=== PATIENT | female | born 1995 | race African-American/Black ===

== ENCOUNTER 2023-05-16 14:58 | Emergency (ER) | payer OTHER, SELFPAY ==
--- NOTE | ~2023-05-16 | US_ITS ---
CORRECTED REPORT examination description [facility] [place] 05/17/23 This report was recreated on 05/17/23. Original report was [employer] EXAMINATION: US OB <= 14 weeks fetus w TV INDICATION: hcg quant >1500, suprapubic pain TECHNIQUE: Sonography of the pelvis was performed by transabdominal and transvaginal techniques. COMPARISON: None. RESULT: Uterus: 10.8 x 6.2 x 7.0 cm. Anteverted. The cervix is long and closed. Homogenous myometrium. Intrauterine gestational sac: Single present. Mean Sac Diameter: 2.7 cm, corresponding gestational age 7 week 5 days. Yolk sac: 0.4 cm . Embryo: Single present. Ayden rump length: 1.22 cm, corresponding gestational age 7 weeks, 3 days. Gestational heart rate: present 159 bpm. Subgestational hematoma: Absent . Right ovary: 3.5 x 1.7 x 2.2 cm. Vascular flow is present. No adnexal mass. Left ovary: 2.6 x 1.2 x 1.4 cm. Vascular flow is present. No adnexal mass. Pelvis free fluid: Trace free fluid in the right adnexa IMPRESSION: Single, live intrauterine gestation. Estimated Gestational Age: 7 weeks, 3 days by crown rump length. SYMONE by ultrasound 12/30/2023. Reviewed, dictated and finalized at location K. [employer] EXP[employer] MTDD IMPRESSION: Single, live intrauterine gestation. Estimated Gestational Age: 7 weeks, 3 days by crown rump length. SYMONE by ultras ound 12/30/2023.
[2023-05-16 15:18] VITALS: BP 132/78; PULSE 107; RESP 16; TEMP 36.8; O2SAT 100
[2023-05-16 15:37] LABS: Basophils Percent Auto 0.2 % (0.2-1.2); Eosinophils Absolute Auto 0.2 K/mm3 (0-0.3); Eosinophils Percent Auto 1.5 % (0-4.4); Hematocrit 35.5 % (37.0-47.0); Hemoglobin 10.8 g/dL (12.0-15.0); Immature Granulocyte Absolute 0.02 K/mm3 (0.00-0.031); Immature Granulocyte Percent A 0.2 % (0-0.5); Lymphocytes Absolute Auto 2.61 K/mm3 (0.9-3.2); Lymphocytes Percent Auto 26.6 % (18.3-44.2); Mean Corpuscular HGB Conc 30.4 g/dl (32-36); Mean Corpuscular Hemoglobin 24.1 pg (26-34); Mean Corpuscular Volume 79.2 fl (80-100); Mean Platelet Volume 9.5 fl (7.4-10.4); Monocytes Absolute Auto 0.5 K/mm3 (0.1-0.6); Monocytes Percent Auto 5.1 % (2.6-8.5); Neutrophils Absolute Auto 6.5 K/mm3 (1.3-6.7); Neutrophils Percent Auto 66.4 % (45.5-73.1); Platelet Count Result 361 k/mm3 (150-375); Red Blood Count 4.48 M/mm3 (4.2-5.4); White Blood Count 9.8 K/mm3 (4.5-10.0)
[2023-05-16 15:48] LABS: Appearance Urine Cloudy (Clear); Bacteria Urine 1+ /hpf; Bilirubin Urine Negative (Negative); Blood Urine Negative (Negative); Color Urine Yellow (Yellow); Glucose Urine UA Negative (Negative); Ketones Urine Negative (Negative); Leukocyte Esterase Ur 2+ LEU/UL (Negative); Nitrate Urine Negative (Negative); Non Pathogenic Casts 0-2; Protein Urine Negative (Negative); RBC Urine 0-2 /hpf (0-2); Squamous Epithelial Cell Urine Moderate /hpf (Few); WBC Urine 21-50 /hpf; pH Urine 5.5 (5.0-9.0)
[2023-05-16 15:50] LABS: Alanine Aminotransferase 19 U/L (6-35); Albumin Level 4.3 g/dL (3.5-5.1); Alkaline Phosphatase 82 U/L (38-126); Anion Gap 12 mmol/L (8-16); Aspartate Amino Transferase 20 U/L (14-36); Bilirubin,Total 0.4 mg/dL (0.2-1.3); Blood Urea Nitrogen 5 mg/dL (7-17); Calcium 9.5 mg/dL (8.4-10.2); Carbon Dioxide 22 mmol/L (22-30); Chloride 101 mmol/L (98-107); Estimated CRCL calculation 188 ml/min; Estimated Glomerular Filt Rate > 60; Glucose 121 mg/dL (65-110); Lipase 32 U/L (23-300); Potassium 3.6 mmol/L (3.4-5.0); Sodium 135 mmol/L (137-145)
[2023-05-16 15:53] LABS: Add Urine Microscopic? YES
[2023-05-16 16:01] VITALS: BP 121/88; O2SAT 100
[2023-05-16 16:31] VITALS: BP 114/81; O2SAT 100
[2023-05-16 16:46] VITALS: BP 119/84; O2SAT 100
--- NOTE | 2023-05-16 17:15 | ED.ABDPAIN ---
HPI - Abdominal Pain General Chief Complaint: Abdominal Pain Stated Complaint: abd pain Time Seen by Provider: 05/16/23 17:03 History of Present Illness HPI narrative: 28-year-old Female, , reports for evaluation for suprapubic abdominal pain and nausea for the past week. Patient describes the pain as crampy and intermittent. States it is worse when she sits up and better when she lays flat. She reports associated urinary frequency. Patient also states she cole positive at home test 1 and half weeks ago. Her last menstrual period was March 21 2023. She does not have an OBGYN. She denies flank pain, dysuria, fevers, vomiting, diarrhea, hematuria, vaginal bleeding or discharge, concern for STDs, Chest pain or shortness of breath. She has not taken anything for her pain. Last bowel movement was today and normal. Related Data Allergies Allergy/AdvReac Type Severity Reaction Status Date / Time No Known Allergies Allergy Verified 05/16/23 15:55 Review of Systems Review of Systems: CONSTITUTIONAL: Denies fever, chills, or sweats. EYES: Denies visual changes, redness, or discharge. ENT: Denies rhinorrhea, congestion, sore throat, or otalgia. CARDIOVASCULAR: Denies chest pain, palpitations, or edema. RESPIRATORY: Denies cough or dyspnea. GASTROINTESTINAL: See HPI GENITOURINARY: Denies dysuria or hematuria. SKIN: see HPI MUSCULOSKELETAL: Denies back pain, joint pain, or myalgia. NEUROLOGIC: Denies headache, numbness, or weakness. PSYCHIATRIC: Denies anxiety or depression. Exam Narrative: GENERAL: Well-appearing, well-nourished, and in no acute distress. patient resting comfortably in exam bed. She is pleasant and conversational. HEAD: Normocephalic, atraumatic. EYES: PERRLA and EOMI. ENT: Nares clear, no rhinorrhea or epistaxis. Mucous membranes moist. NECK: Supple. CHEST: Clear to auscultation. No respiratory distress. HEART: Regular rate and rhythm. No murmur heard. Normal peripheral pulses. ABDOMEN: Normoactive bowel sounds. Abdomen soft with mild tenderness in the suprapubic region. No guarding, rebound or rigidity. No CVA tenderness. No overlying skin changes. EXTREMITIES: Normal range of motion. No edema. SKIN: Warm, dry, no rash. NEURO: No focal deficits. Alert and oriented x3 Course Vital Signs Vital signs: Vital Signs Temperature 98.3 F 05/16/23 15:18 Pulse Rate 107 H 05/16/23 15:18 Respiratory Rate 16 05/16/23 15:18 Blood Pressure 132/78 05/16/23 15:18 Pulse Oximetry 100 05/16/23 15:18 Oxygen Delivery Room Air 05/16/23 15:18 Temperature 98.3 F 05/16/23 15:18 Pulse Rate 107 H 05/16/23 15:18 Respiratory Rate 16 05/16/23 15:18 Blood Pressure 119/84 05/16/23 16:46 Pulse Oximetry 100 05/16/23 16:46 Oxygen Delivery Room Air 05/16/23 15:18 MDM - Abdominal Pain MDM Narrative Medical decision making narrative: 28-year-old female, , reports for evaluation for suprapubic abdominal cramping, nausea and urinary frequency for the past week. See HPI for further history. Vitals significant for mild tachycardia 107, otherwise unremarkable he. She is afebrile. She is largely well appearing on exam. Bedside test positive. Beta hCG quantitative is 83,047. CBC without leukocytosis. Hemoglobin is 10.8 with 79.2 MCV. No prior history for comparison. Chemistries are largely unremarkable. Urinalysis with 2+ leuk esterase, 21-50 wbc's and bacteria. Given and reported complaint of urinary frequency, will treat for UTI. Urine culture pending. ultrasounds of was a single AP intrauterine gestation with an estimated gestational age of 7 weeks and 3 days by crown-rump length. Estimated delivery date ultrasound 12/30/2023. Labs and imaging discussed with the patient. She received IV fluids, Tylenol, Reglan and Rocephin with improvement in symptoms. Plan to send home with close OBGYN follow-up, Keivonne and Luis
[2023-05-16] MEDS: ACETAMINOPHEN 500 MG TABLET 1000 MG PO (17:39)
[2023-05-16] MEDS: SODIUM CHLORIDE 0.9% IV 1,000 ML 999 ML IV CONT (17:39)
[2023-05-16] MEDS: METOCLOPRAMIDE HCL INJ 10 MG/2 ML VIAL IV PUSH (17:40)
[2023-05-16 19:21] VITALS: BP 132/85; PULSE 100; RESP 16; TEMP 36.9; O2SAT 100
== END 2023-05-16 19:41 | disposition home or self-care (01) ==
PROVIDERS: Emergency Medicine; Emergency Provider Physician Assistant
DX: O21.0 Mild hyperemesis gravidarum (principal); Z3A.01 Less than 8 weeks gestation of pregnancy; R82.998 Other abnormal findings in urine; O99.011 Anemia complicating pregnancy, first trimester; D50.8 Other iron deficiency anemias
CPT/HCPCS: 36415; 76801; 76817; 80053; 81001; 81025; 83690; 84702; 85025; 87086; 96365; 96375; 99284; A9270; J0696; J2765; J7030